=== PATIENT | female | born 1980 ===

== ENCOUNTER → 2023-10-21 | Day surgery (SDC) | payer OTHER ==
[2023-10-12 12:22] LABS: PH,URINE 6.5 (5.0-8.0); URINE BILIRRUBIN Small (NEGATIVE); URINE BLOOD Large; URINE COLOR Orange; URINE GLUCOSE Negative (NEGATIVE); URINE LEUKOCYTE Moderate; URINE NITRATE Negative; URINE UROBILINOGEN 0.2 E.U./dl
[2023-10-12 12:24] LABS: URINE BACTERIA 2343.5 uL (0.0-1933); URINE WBC 232.3 uL (0.0-23.2)
[2023-10-12 12:39] LABS: CALCIUM 9.4 mg/dL (8.5-10.1); CREATININE SERUM 0.75 mg/dL (0.55-1.02); GFR 83.95; POTASSIUM 4.86 mEq/L (3.5-5.1)
[2023-10-12 12:52] LABS: INR 0.98; PARTIAL THROMBOPLASTIN TIME 28.8 SECONDS (22.0-34.0); PROTHROMBIN TIME 10.3 SECONDS (9.0-11.5)
[2023-10-12 13:00] LABS: URINE APPEARANCE SL CLOUDY; URINE PROTEIN 300 (NEGATIVE); URINE RBC > 10558.9 uL (0.0-20.8)
[2023-10-12 13:05] LABS: HEMATOCRIT 35.8 % (36.0-45.00); HEMOGLOBIN 11.4 g/dL (12.0-15.00); MEAN CORPUSCULAR HGB CONC 31.9 g/dl (32.0-36.0); PLATELET COUNT 516 K/uL (150-450); RED BLOOD COUNT 5.43 M/uL (4.00-6.00)
[~2023-10-21] VITALS: Ht 172.7 cm; Wt 88.5 kg
[~2023-10-21] MED LIST: GENTAMICIN SULFATE 40 MG/ML VIAL IV ONE; LOSARTAN POTASS50 MG PO; OZEMPIC0.25 MG/02
== END | disposition home or self-care (01) ==
LOC: CIR.AMB 10:47
PROVIDERS: ATTEND Urology
DX: T83.122A Displacement of indwelling ureteral stent, initial encounter (principal); N20.0 Calculus of kidney; I10 Essential (primary) hypertension; E11.9 Type 2 diabetes mellitus without complications; Z88.8 Allergy status to other drugs, medicaments and biological substances